=== PATIENT | female | born 1995 | race Hispanic/Latino ===

== ENCOUNTER 2018-03-02 07:48 | Emergency (ER) | payer SELFPAY ==
[2018-03-02] MEDS ORDERED: IBUPROFEN 200 MG TAB PO ONE (08:23)
[2018-03-02] MEDS ORDERED: IBUPROFEN 400 MG TAB ONE (08:23)
--- NOTE | 2018-03-02 09:00 | ER ---
Nurse's Notes [facility] Name: Sofy Vela Age: 22 yrs Sex: Female : 1995 Arrival Date: 03/02/2018 Time: 07:56 Bed 17 Private MD: None, None Diagnosis: Pain in left wrist Presentation: 03/02 08:08 Presenting complaint: Patient states: 40 lb box fell onto L hand 2 days ago. Was seen ss at occupational health facility and had XRAYs obtained the same day, and was told there was not a fracture, take Tylenol for pain and come back Saturday for follow up. Pt reports that pain is much worse yesterday and today and was told to come to ER for further evaluation. Transition of care: patient was not received from another setting of care. Onset of symptoms was February 28, 2018. Risk Assessment: Do you want to hurt yourself or someone else? Patient reports no desire to harm self or others. Initial Sepsis Screen: Does the patient meet any 2 criteria? No. Patient's initial sepsis screen is negative. Does the patient have a suspected source of infection? No. Patient's initial sepsis screen is negative. Care prior to arrival: None. 08:08 Method Of Arrival: Ambulatory ss 08:08 Acuity: EDWINA 4 ss Historical: - Allergies: 08:11 No Known Allergies; ss - Home Meds: 08:11 None [Active]; ss - PMHx: 08:11 None; ss - PSHx: 08:11 None; ss - Immunization history:: Adult Immunizations up to date. - Social history:: Smoking status: Patient/guardian denies using tobacco. - Ebola Screening: : Patient denies exposure to infectious person Patient denies travel to an Ebola-affected area in the 21 days before illness onset. Screenin:20 Abuse screen: Denies threats or abuse. Nutritional screening: No deficits noted. em Tuberculosis screening: No symptoms or risk factors identified. Fall Risk None identified. Assessment: 08:20 General: Appears in no apparent distress. uncomfortable, Behavior is calm, cooperative. em Pain: Complains of pain in left hand Pain currently is 8 out of 10 on a pain scale. Pain began 2-3 days ago. Neuro: Level of Consciousness is awake, alert, obeys commands, Oriented to person, place, time, situation. Cardiovascular: Patient's skin is warm and dry. Respiratory: Airway is patent Respiratory effort is even, unlabored, Respiratory pattern is regular, symmetrical. Derm: Skin is intact, Skin is pink, warm \T\ dry. Musculoskeletal: Capillary refill < 3 seconds, Range of motion: limited in left wrist Swelling present in dorsum of left hand and palm of left hand. Injury Description: Crush injury is box of syrup for fountain drinks. 08:30 General: The previous assessment is accurate, call light remains within reach. . ss Vital Signs: 08:11 BP 103 / 67; Pulse 86; Resp 15; Temp 98.8(TE); Pulse Ox 100% on R/A; Weight 49.9 kg; ss Height 5 ft. 1 in. (154.94 cm); Pain 8/10; 08:11 Body Mass Index 20.78 (49.90 kg, 154.94 cm) ED Course: 07:56 Patient arrived in ED. sb2 07:57 None, None is Private Physician. sb2 07:57 Melissa Drake FNP-C is [facility]. kb 07:57 Frank Ritter MD is Attending Physician. kb 08:06 Kelvin Cheek LVN is Primary Nurse. em 08:11 Triage completed. ss 08:11 Arm band placed on right wrist. ss 08:20 Patient has correct armband on for positive identification. Placed in gown. Bed in low em position. Call light in reach. 08:26 Wrist Left (3 View) XRAY In Process Unspecified. EDMS 09:17 No provider procedures requiring assistance completed. Patient did not have IV access em during this emergency room visit. 09:17 Sling applied to left arm. em Administered Medications: 08:17 Drug: Ibuprofen 600 mg Route: PO; em 09:16 Follow up: Response: No adverse reaction; Pain is decreased em Outcome: 08:59 Discharge ordered by . kb 09:17 Discharged to home ambulatory. em 09:17 Condition: good 09:17 Discharge instructions given to patient, Instructed on discharge instructions, follow up and referral plans. Demonstrated understanding of instructions, follow-up care. 09:17 Patient left the ED. em Signatures: Dispatcher [employer] EDMS Melissa Drake FNP-C FNP-Kelvin Rodríguez LVN LVN Ya Medina, RN RN ss Eliecer, Rossi sb2
--- NOTE | 2018-03-02 09:00 | EDPHYS ---
Physician Documentation [facility] Name: Sofy Vela Age: 22 yrs Sex: Female : 1995 Arrival Date: 03/02/2018 Time: 07:56 Bed 17 Private MD: None, None ED Physician Frank Ritter HPI: 03/02 08:56 This 22 yrs old Female presents to ER via Ambulatory with complaints of Hand kb Injury. 08:54 The patient has been recently seen by a physician: at a clinic. kb 08:56 The patient or guardian reports injury, pain, swelling. The complaints affect the kb lateral aspect of left hand and left wrist. Context: The problem was sustained at work, resulted from a direct blow, heavy box fell onto it. Onset: The symptoms/episode began/occurred 2 day(s) ago. Modifying factors: The symptoms are alleviated by splinting, compression, the symptoms are aggravated by movement. Associated signs and symptoms: The patient has no apparent associated signs or symptoms, Pertinent negatives: cyanosis distally, decreased sensation distally, fever, nausea, numbness distally, tingling distally, vomiting. Severity of symptoms: At their worst the symptoms were moderate, in the emergency department the symptoms are unchanged. The patient has not experienced similar symptoms in the past. Pt states a heavy box fell onto left hand and wrist 2 days ago. Went to [facility] afterwards and had an x-ray done which was negative. Brace applied and told to follow up next week. States pain is worse today with movement so her boss told her to come get it re-evaluated. \E\. Historical: - Allergies: 08:11 No Known Allergies; ss - Home Meds: 08:11 None [Active]; ss - PMHx: 08:11 None; ss - PSHx: 08:11 None; ss - Immunization history:: Adult Immunizations up to date. - Social history:: Smoking status: Patient/guardian denies using tobacco. - Ebola Screening: : Patient denies exposure to infectious person Patient denies travel to an Ebola-affected area in the 21 days before illness onset. ROS: 08:54 Constitutional: Negative for fever, chills, and weight loss, Cardiovascular: Negative kb for chest pain, palpitations, and edema, Respiratory: Negative for shortness of breath, cough, wheezing, and pleuritic chest pain, Abdomen/GI: Negative for abdominal pain, nausea, vomiting, diarrhea, and constipation, Back: Negative for injury and pain, Skin: Negative for injury, rash, and discoloration, Neuro: Negative for headache, weakness, numbness, tingling, and seizure. 08:54 MS/extremity: Positive for injury or acute deformity, pain, swelling, tenderness, of the lateral aspect of left hand and left wrist. Exam: 08:54 Constitutional: This is a well developed, well nourished patient who is awake, alert, kb and in no acute distress. Head/Face: Normocephalic, atraumatic. Chest/axilla: Normal chest wall appearance and motion. Nontender with no deformity. No lesions are appreciated. Cardiovascular: Regular rate and rhythm with a normal S1 and S2. No gallops, murmurs, or rubs. Normal PMI, no JVD. No pulse deficits. Respiratory: Lungs have equal breath sounds bilaterally, clear to auscultation and percussion. No rales, rhonchi or wheezes noted. No increased work of breathing, no retractions or nasal flaring. Abdomen/GI: Soft, non-tender, with normal bowel sounds. No distension or tympany. No guarding or rebound. No evidence of tenderness throughout. Skin: Warm, dry with normal turgor. Normal color with no rashes, no lesions, and no evidence of cellulitis. Neuro: Awake and alert, GCS 15, oriented to person, place, time, and situation. Cranial nerves II-XII grossly intact. Motor strength 5/5 in all extremities. Sensory grossly intact. Cerebellar exam normal. Normal gait. 08:54 Musculoskeletal/extremity: Extremities: grossly normal except: noted in the lateral aspect of left hand and left wrist: pain, swelling, tenderness, ROM: limited active range of motion due to pain, in the left wrist, Circulation is intact in all extremities. Sensation intact. Vital Signs: 08:11 BP 103 / 67; Pulse 86; Resp 15; Temp 98.8(TE); Pulse Ox 100% on R/A; Weight 49.9 kg; ss Height 5 ft. 1 in. (154.94 cm); Pain 8/10; 08:11 Body Mass Index 20.78 (49.90 kg, 154.94 cm) ss MDM: 08:03 Patient medically screened. kb 08:53 Data reviewed: vital signs, nurses notes. Data interpreted: Pulse oximetry: on room air kb is 100 %. Interpretation: normal. Counseling: I had a detailed discussion with the patient and/or guardian regarding: the historical points, exam findings, and any diagnostic results supporting the discharge/admit diagnosis, radiology results, the need for outpatient follow up, a orthopedic surgeon, to return to the emergency department if symptoms worsen or persist or if there are any questions or concerns that arise at home. 08:58 ED course: Brace reapplied. Pt reports relief of pain with brace. kb 03/02 08:06 Order name: Wrist Left (3 View) XRAY kb 03/02 08:53 Order name: Sling; Complete Time: 08:59 kb Administered Medications: 08:17 Drug: Ibuprofen 600 mg Route: PO; em 09:16 Follow up: Response: No adverse reaction; Pain is decreased em Disposition: 03/02/18 08:59 Discharged to Home. Impression: Pain in left wrist. - Condition is Stable. - Discharge Instructions: Cryotherapy, [id number], Wrist Pain, [id number]. - Medication Reconciliation Form, Thank You Letter, Antibiotic Education, Prescription Opioid Use, Work release form form. - Follow up: Emergency Department; When: As needed; Reason: Worsening of condition. Follow up: Private Physician; When: 2 - 3 days; Reason: Recheck today's complaints, Continuance of care, Re-evaluation by your physician. Addendum: 03/04/2018 10:20 Co-signature as Attending Physician, Frank Ritter MD. g s Signatures: Dispatcher [employer] Melissa Abad, AUTO BODY BUILDER APPRENTICE-C AUTO BODY BUILDER APPRENTICE-Ckb Kelvin Cheek, DUDE RANCH MANAGER DUDE RANCH MANAGER em Ya Mckeon, Frank Huang RN, MD MD gs Corrections: (The following items were deleted from the chart) 03/02 09:17 08:59 03/02/2018 08:59 Discharged to Home. Impression: Pain in left wrist. Condition is em Stable. Forms are Medication Reconciliation Form, Thank You Letter, Antibiotic Education, Prescription Opioid Use. Follow up: Emergency Department; When: As needed; Reason: Worsening of condition. Follow up: Private Physician; When: 2 - 3 days; Reason: Recheck today's complaints, Continuance of care, Re-evaluation by your physician. kb
--- NOTE | 2018-03-02 10:55 | RAD REPORT ---
EXAM DESCRIPTION: RAD - Wrist Left 3 View - 03/02/2018 8:26 am CLINICAL HISTORY: PAIN Pain COMPARISON: No comparisons FINDINGS: No fracture or dislocation of the left wrist is seen.
== END 2018-03-02 09:17 | disposition home or self-care (01) ==
LOC: ER 07:48
DX: M25.532 Pain in left wrist (principal)
CPT/HCPCS: 99283

== ENCOUNTER 2018-03-27 16:20 | Emergency (ER) | payer SELFPAY ==
[2018-03-27 17:17] LABS: Urine Blood NEGATIVE (NEG); Urine Glucose NEGATIVE (NEG); Urine Protein 1+ (NEG); Urine Specific Gravity 1.025 (1.005-1.030)
[2018-03-27] MEDS ORDERED: FENTANYL CITR 100 MCG/2 ML ONE ×2 (17:26→18:18)
[2018-03-27] MEDS ORDERED: NA CHLORIDE 0.9% 1,000 ML ONE (17:26)
[2018-03-27] MEDS ORDERED: ONDANSETRON 4 MG/2 ML VIAL ONE (17:26)
[2018-03-27 17:38] LABS: Protime INR 1.26
[2018-03-27 17:39] LABS: Absolute Lymphocytes (CBC) 1.7 K/uL (0.7-4.9); Absolute Monocytes 0.7 K/uL (0.1-1.3); Absolute Neutrophil 5.3 K/uL (1.8-8.0); Basophils % 0.1 % (0-1.3); Eosinophils % 0.7 % (0-4.4); Hematocrit 38.8 % (36.0-45.0); MPV 9.9 fL (7.6-11.3); Monocytes % 8.8 % (3.3-12.3); RBC Red Blood Cell Count 4.24 M/uL (3.86-4.86)
[2018-03-27 17:51] LABS: BUN Blood Urea Nitrogen 7 mg/dL (7-18); Bicarbonate 27 mmol/L (21-32); Glucose Level 66 mg/dL (74-106); Potassium 3.4 mmol/L (3.5-5.1); Sodium Level 142 mmol/L (136-145)
--- NOTE | 2018-03-27 18:05 | RAD REPORT ---
EXAM DESCRIPTION: CT - Head C Spine Cap Brandon Correa - 03/27/2018 5:50 pm CLINICAL HISTORY: Trauma, head and neck injury. Chest, abdomen and pelvis pain. fall on stairs COMPARISON: No comparisons TECHNIQUE: CT head without contrast. CT cervical spine without contrast with coronal and sagittal reformatted images. CT chest, abdomen and pelvis with IV contrast (approximately 100 mL nonionic IV contrast) with kearney l and sagittal reformatted images of the spine. All CT scans are performed using dose optimization technique as appropriate and may include automated exposure control or mA/KV adjustment according to patient size. FINDINGS: CT HEAD WITHOUT CONTRAST: No intracranial hemorrhage, hydrocephalus or extra-axial fluid collection. No areas of brain edema o r midline shift. The paranasal sinuses and mastoids are clear. The calvarium is intact. CT CERVICAL SPINE WITHOUT CONTRAST: No fracture or subluxation. The prevertebral soft tissues are normal in thickness. CT CHEST, ABDOMEN, PELVIS WITH CONTRAST: The lungs are clear.No pneumothorax or pericardial/pleural fluid. No evidence of intra-abdominal visceral injury, free fluid or free air. No concerning pelvic findings. No fractures. IMPRESSION: Negative for acute traumatic findings.
--- NOTE | 2018-03-27 18:24 | EDPHYS ---
Physician Documentation [facility] Name: Sofy Vela Age: 22 yrs Sex: Female : 1995 Arrival Date: 03/27/2018 Time: 16:22 Bed 19 Private MD: None, None ED Physician Jluis Kaiser HPI: 03/27 17:02 This 22 yrs old Female presents to ER via Ambulatory with complaints of Fall cp Injury, Head Injury With LOC-Adult. 17:02 Details of fall: The patient fell from an upright position, while walking, and struck a cp concrete surface, stairs. 17:02 Onset: The symptoms/episode began/occurred just prior to arrival. Associated injuries: cp The patient sustained injury to the head, contusion, injury to the low back, contusion, pain with movement, swelling, tenderness, injury to the abdomen, specifically the anterior aspect of right lateral abdomen and anterior aspect of left lateral abdomen. 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 - Social history:: Smoking status: Patient/guardian denies using tobacco, Patient/guardian denies using alcohol. - Immunization history: Last tetanus immunization: - up to date. - Ebola Screening: : Patient negative for fever greater than or equal to 101.5 degrees Fahrenheit, and additional compatible Ebola Virus Disease symptoms Patient denies exposure to infectious person Patient denies travel to an Ebola-affected area in the 21 days before illness onset. ROS: 17:05 Constitutional: Negative for body aches, chills, fever, poor PO intake. cp 17:05 Eyes: Negative for injury, pain, redness, and discharge. cp 17:05 ENT: Negative for drainage from ear(s), ear pain, sore throat, difficulty swallowing, difficulty handling secretions. 17:05 Cardiovascular: Negative for chest pain, palpitations. 17:05 Respiratory: Negative for cough, shortness of breath, wheezing. 17:05 Abdomen/GI: Positive for abdominal pain, of the anterior aspect of right lateral abdomen and anterior aspect of left lateral abdomen, Negative for vomiting, diarrhea, constipation, anorexia. 17:05 Back: Positive for pain at rest, pain with movement, of the lumbar area. 17:05 MS/extremity: Negative for injury or acute deformity, decreased range of motion, paresthesias. 17:05 Skin: Negative for cellulitis, rash. 17:05 Neuro: Positive for loss of consciousness, Negative for altered mental status, dizziness, headache, seizure activity, syncope, weakness. 17:05 All other systems are negative. Exam: 17:15 Constitutional: The patient appears in no acute distress, alert, awake, non-toxic, well cp developed, well nourished, uncomfortable. 17:15 Head/face: Noted is contusion, that is superficial, of the occipital area of scalp, cp swelling, that is mild, tenderness, that is mild. 17:15 Eyes: Periorbital structures: appear normal, Pupils: equal, round, and reactive to light and accomodation, Extraocular movements: intact throughout, Conjunctiva: normal, no exudate, no injection, Sclera: no appreciated abnormality, Lids and lashes: appear normal, bilaterally. 17:15 ENT: External ear(s): are unremarkable, Ear canal(s): are normal, clear, TM's: are normal, no evidence of bulging, no erythema, Nose: is normal, Mouth: Lips: moist, Oral mucosa: pink and intact, moist, Posterior pharynx: is normal, airway is patent, no erythema, no exudate. 17:15 Neck: C-spine: C-collar placed in ED, vertebral tenderness, that is mild, crepitus, is not appreciated. 17:15 Chest/axilla: Inspection: normal, Palpation: is normal, no crepitus, no tenderness. 17:15 Cardiovascular: Rate: normal, Rhythm: regular. 17:15 Respiratory: the patient does not display signs of respiratory distress, Respirations: normal, no use of accessory muscles, no retractions, no splinting, no tachypnea, Breath sounds: are clear throughout, no decreased breath sounds, no stridor, no wheezing. 17:15 Abdomen/GI: Inspection: abdomen appears normal, Bowel sounds: active, all quadrants, Palpation: soft, in all quadrants, mild abdominal tenderness, in the anterior aspect of right lateral abdomen and anterior aspect of left lateral abdomen, rebound tenderness, is not appreciated, voluntary guarding, is not appreciated, involuntary guarding, is not appreciated. 17:15 Back: pain, that is severe, of the lumbar area, Straight leg raises: pain bilaterally, contusion with small abrasion noted lumbar area. 17:15 Musculoskeletal/extremity: Exam is negative for decreased range of motion, deformity, injury. 17:15 Neuro: Orientation: to person, place \T\ time. Mentation: is normal, Cerebellar function: is grossly normal, Motor: moves all fours, strength is normal, Sensation: is normal. Vital Signs: 16:37 BP 118 / 76; Pulse 92; Resp 18; Temp 98.0(TE); Pulse Ox 100% on R/A; Weight 52.16 kg; hj Height 5 ft. 1 in. (154.94 cm); Pain 10/10; 17:30 BP 111 / 65; Pulse 75; Resp 16; Temp 98.2(O); Pulse Ox 100% on R/A; mh5 16:37 Body Mass Index 21.73 (52.16 kg, 154.94 cm) Ry Coma Score: 16:40 Eye Response: spontaneous(4). Verbal Response: oriented(5). Motor Response: obeys bp commands(6). Total: 15. Trauma Score (Adult): 16:40 Eye Response: spontaneous(1); Verbal Response: oriented(1); Motor Response: obeys bp commands(2); Systolic BP: > 89 mm Hg(4); Respiratory Rate: 10 to 29 per min(4); Ry Score: 15; Trauma Score: 12 MDM: 16:49 Patient medically screened. cp 18:00 Differential diagnosis: closed head injury, contusion, fracture, multiple trauma. cp 18:21 Data reviewed: vital signs, nurses notes, lab test result(s), radiologic studies, CT cp scan, and as a result, I will discharge patient. Response to treatment: the patient's symptoms have markedly improved after treatment, and as a result, I will discharge patient. 03/27 17:00 Order name: Basic Metabolic Panel; Complete Time: 18:06 cp 03/27 18:06 Interpretation: Normal except: K 3.4; GLUC 66. cp 03/27 17:00 Order name: CBC with Diff; Complete Time: 17:48 cp 03/27 17:49 Interpretation: Reviewed. 03/27 17:00 Order name: Creatinine for Radiology; Complete Time: 18:06 cp 03/27 17:00 Order name: PT-INR; Complete Time: 17:48 cp 03/27 17:12 Order name: Urine Dipstick--Ancillary (enter results); Complete Time: 17:48 eb 02 17:49 Interpretation: Normal except: UPROT 1+; UESTR TRACE. cp 03/27 17:00 Order name: C-Collar; Complete Time: 17:10 cp 03/27 17:00 Order name: CT Traumagram (Head C Spine CAP W Con); Complete Time: 18:10 cp 03/27 18:10 Interpretation: Report reviewed. 03/27 17:00 Order name: Labs collected and sent; Complete Time: 17:28 cp 03/27 17:12 Order name: Urine --Ancillary (enter results); Complete Time: 17:48 eb 03/27 17:00 Order name: Urine Dipstick-Ancillary (obtain specimen); Complete Time: 17:12 cp 03/27 17:00 Order name: Urine Test (obtain specimen); Complete Time: 17:12 cp Administered Medications: 17:10 Drug: fentaNYL (PF) 25 mcg Route: IVP; Site: right antecubital; bp 18:28 Follow up: Response: Pain is decreased bp 17:28 Drug: NS 0.9% 1000 ml Route: IV; Rate: 1 bolus; Site: right antecubital; bp 18:30 Follow up: IV Status: Completed infusion; IV Intake: 1000ml bp 17:29 Drug: Zofran 4 mg Route: IVP; Site: right antecubital; bp 18:28 Follow up: Response: Nausea is decreased bp 18:00 Drug: fentaNYL (PF) 25 mcg Route: IVP; Site: right antecubital; bp 18:28 Follow up: Response: Pain is decreased bp Disposition: 19:30 Chart complete. 03/28 12:43 Co-signature as Attending Physician, Jluis Kaiser MD I agree with the assessment and wa plan of care. Disposition: 03/27/18 18:23 Discharged to Home. Impression: Fall (on) (from) other stairs and steps, Contusion of lower back and pelvis, Contusion of unspecified part of head. - Condition is Stable. - Discharge Instructions: Contusion, Concussion, Adult, Head Injury, Adult, RICE for Routine Care of Injuries, Heat Therapy. - Prescriptions for Ibuprofen 600 mg Oral Tablet - take 1 tablet by ORAL route every 6 hours As needed take with food; 30 tablet. Tylenol- Codeine #3 300-30 mg Oral Tablet - take 2 tablets by ORAL route every 6 hours As needed no driving while taking medication; 20 tablet. Cyclobenzaprine 10 mg Oral Tablet - take 1 tablet by ORAL route every 8 hours As needed no driving while taking medication; 20 tablet. - Medication Reconciliation Form, Thank You Letter, Antibiotic Education, Prescription Opioid Use form. - Follow up: Private Physician; When: 1 - 2 days; Reason: Recheck today's complaints. - Problem is new. - Symptoms have improved. Signatures: Dispatcher [employer] [facility] Sameer Aviles RN RN hj Wallace Piedra PA PA cp Appiah, William, MD MD wa Peltier, Brian, RN RN bp Corrections: (The following items were deleted from the chart) 03/27 18:27 18:23 03/27/2018 18:23 Discharged to Home. Impression: Fall (on) (from) other stairs cp and steps; Contusion of lower back and pelvis; Contusion of unspecified part of head. Condition is Stable. Forms are Medication Reconciliation Form, Thank You Letter, Antibiotic Education, Prescription Opioid Use. Follow up: Private Physician; When: 1 - 2 days; Reason: Recheck today's complaints. Problem is new. Symptoms have improved. cp 18:29 17:01 TYPE AND SCREEN+[id number].LAB.BRZ ordered. [facility] EDNJ 19:11 18:27 03/27/2018 18:23 Discharged to Home. Impression: Fall (on) (from) other stairs bp and steps; Contusion of lower back and pelvis; Contusion of unspecified part of head. Condition is Stable. Discharge Instructions: Contusion, Concussion, Adult, Head Injury, Adult, RICE for Routine Care of Injuries, Heat Therapy. Prescriptions for Ibuprofen 600 mg Oral Tablet - take 1 tablet by ORAL route every 6 hours As needed take with food; 30 tablet, Tylenol-Codeine #3 300-30 mg Oral Tablet - take 2 tablets by ORAL route every 6 hours As needed no driving while taking medication; 20 tablet, Cyclobenzaprine 10 mg Oral Tablet - take 1 tablet by ORAL route every 8 hours As needed no driving while taking medication; 20 tablet. and Forms are Medication Reconciliation Form, Thank You Letter, Antibiotic Education, Prescription Opioid Use. Follow up: Private Physician; When: 1 - 2 days; Reason: Recheck today's complaints. Problem is new. Symptoms have improved. cp
--- NOTE | 2018-03-27 18:24 | ER ---
Nurse's Notes [facility] Name: Sofy Vlea Age: 22 yrs Sex: Female : 1995 Arrival Date: 03/27/2018 Time: 16:22 Bed 19 Private MD: None, None Diagnosis: Fall (on) (from) other stairs and steps;Contusion of lower back and pelvis;Contusion of unspecified part of head Presentation: 03/27 16:34 Presenting complaint: Patient states: i fell from 3 steps from my apartment and hurt my hj head and my lower back; eugene like i passed like 3 seconds; headache pain lever is 7/10; lower back pain lever is 10/10;. Transition of care: patient was not received from another setting of care. Onset of symptoms was March 27, 2018. Risk Assessment: Do you want to hurt yourself or someone else? Patient reports no desire to harm self or others. Initial Sepsis Screen: Does the patient meet any 2 criteria? No. Patient's initial sepsis screen is negative. Does the patient have a suspected source of infection? No. Patient's initial sepsis screen is negative. Care prior to arrival: None. 16:34 Method Of Arrival: Ambulatory 16:34 Acuity: EDWINA 4 16:40 Mechanism of Injury: Fall. Trauma event details: Injury occurred in the [facility], Injury occurred: in a public building. Injury occurred: March 27, 2018. Triage Assessment: 16:37 General: Appears in no apparent distress. uncomfortable, Behavior is calm, cooperative, hj appropriate for age. Pain: Complains of pain in head. 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 - Social history:: Smoking status: Patient/guardian denies using tobacco, Patient/guardian denies using alcohol. - Immunization history: Last tetanus immunization: - up to date. - Ebola Screening: : Patient negative for fever greater than or equal to 101.5 degrees Fahrenheit, and additional compatible Ebola Virus Disease symptoms Patient denies exposure to infectious person Patient denies travel to an Ebola-affected area in the 21 days before illness onset. Screenin:37 Abuse screen: Denies threats or abuse. Denies injuries from another. Nutritional hj screening: No deficits noted. Tuberculosis screening: No symptoms or risk factors identified. 19:10 Fall Risk Fall in past 12 months (25 points). No secondary diagnosis (0 pts). No IV (0 bp pts). Ambulatory Aid- None/Bed Rest/Nurse Assist (0 pts). Gait- Normal/Bed Rest/Wheelchair (0 pts) Mental Status- Oriented to own ability (0 pts). Total Preston Fall Scale indicates Low Risk Score (25-44 pts). Fall prevention measures have been instituted. Side Rails Up X 2 Placed close to Nursing Station Frequent Obs/Assesments occuring Family Present and informed to notify staff if they need to leave bedside As available Patient and Family Educated on Fall Prevention Program and strategies. Primary Survey: 16:40 NO uncontrolled hemorrhage observed. A: The patient is alert. Airway: patent. bp Breathing/Chest: Respiratory pattern: regular, Respiratory effort: spontaneous, unlabored. Circulation: Skin color: pink, Skin temperature: warm, dry. Disability Alert. Exposure/Environment: All clothing and personal items were removed. Forensic evidence collection is not deemed to be indicated at this time. Items placed in patient belonging bag. There is no evidence of uncontrolled external bleeding. Obvious injury(ies) are noted at this time: LUMBAR AREA HEMATOMA A warming method has been applied: A warm blanket has been provided to the patient. 19:09 Reassessment Airway Airway Patent Breathing/Chest Respiratory pattern Regular bp Respiratory effort Spontaneous Unlabored Breath sounds Clear Circulation Color [place] Temperature Warm Dry Disability Alert. Secondary Survey: 16:40 HEENT: No deficits noted. Gastrointestinal: No deficits noted. : No signs and/or bp symptoms were reported regarding the genitourinary system. Musculoskeletal: Circulation, motion, and sensation intact. Range of motion: intact in all extremities. Injury Description: Bruise sustained to lumbar area. Assessment: 16:40 General: Appears in no apparent distress. uncomfortable, slender, Behavior is bp cooperative, appropriate for age, anxious, crying. Pain: Complains of pain in thoracic area and lumbar area. Neuro: Level of Consciousness is awake, alert, obeys commands, Oriented to person, place, time, situation, Appropriate for age. EENT: No deficits noted. Cardiovascular: No deficits noted. Respiratory: Airway is patent Respiratory effort is even, unlabored, Respiratory pattern is regular, symmetrical. GI: No signs and/or symptoms were reported involving the gastrointestinal system. : No signs and/or symptoms were reported regarding the genitourinary system. Derm: No deficits noted. Musculoskeletal: Circulation, motion, and sensation intact. Range of motion: intact in all extremities. 19:08 Reassessment: PT D/C HOME AMBULATORY WITH FAMILY, DX WITH FALL AND CONTUSION. bp Vital Signs: 16:37 BP 118 / 76; Pulse 92; Resp 18; Temp 98.0(TE); Pulse Ox 100% on R/A; Weight 52.16 kg; hj Height 5 ft. 1 in. (154.94 cm); Pain 10/10; 17:30 BP 111 / 65; Pulse 75; Resp 16; Temp 98.2(O); Pulse Ox 100% on R/A; mh5 16:37 Body Mass Index 21.73 (52.16 kg, 154.94 cm) hj [place] Coma Score: 16:40 Eye Response: spontaneous(4). Verbal Response: oriented(5). Motor Response: obeys bp commands(6). Total: 15. Trauma Score (Adult): 16:40 Eye Response: spontaneous(1); Verbal Response: oriented(1); Motor Response: obeys bp commands(2); Systolic BP: > 89 mm Hg(4); Respiratory Rate: 10 to 29 per min(4); [place] Score: 15; Trauma Score: 12 ED Course: 16:22 Patient arrived in ED. mr 16:23 None, None is Private Physician. mr 16:37 Triage completed. hj 16:40 Arm band placed on right wrist. hj 16:40 Patient has correct armband on for positive identification. Bed in low position. Call bp light in reach. Side rails up X2. Adult w/ patient. 16:40 Patient maintains SpO2 saturation greater than 95% on room air. Thermoregulation: warm bp blanket given to patient. 16:49 Wallace Piedra PA [facility]. cp 16:49 Jluis Kaiser MD is Attending Physician. cp 16:54 Maynor Campos, KD is Primary Nurse. bp 17:27 Inserted saline lock: 20 gauge in right antecubital area, using aseptic technique. bp Blood collected. 17:28 CT Traumagram (Head C Spine CAP W Con) Sent. bp 17:28 Initial lab(s) drawn, by co, sent to lab. Urine collected: clean catch specimen, mh5 cloudy. Inserted saline lock: 20 gauge antecubital area, using aseptic technique. 17:29 PT-INR Sent. mh5 17:29 Basic Metabolic Panel Sent. mh5 17:29 CBC with Diff Sent. mh5 17:29 Creatinine for Radiology Sent. mh5 17:30 Warm blanket given. Pulse ox on. NIBP on. mh5 17:[address] via stretcher. vm2 17:51 CT Traumagram (Head C Spine CAP W Con) In Process Unspecified. EDMS 19:08 No provider procedures requiring assistance completed. IV discontinued, intact, bp bleeding controlled, No redness/swelling at site. Pressure dressing applied. Administered Medications: 17:10 Drug: fentaNYL (PF) 25 mcg Route: IVP; Site: right antecubital; bp 18:28 Follow up: Response: Pain is decreased bp 17:28 Drug: NS 0.9% 1000 ml Route: IV; Rate: 1 bolus; Site: right antecubital; bp 18:30 Follow up: IV Status: Completed infusion; IV Intake: 1000ml bp 17:29 Drug: Zofran 4 mg Route: IVP; Site: right antecubital; bp 18:28 Follow up: Response: Nausea is decreased bp 18:00 Drug: fentaNYL (PF) 25 mcg Route: IVP; Site: right antecubital; bp 18:28 Follow up: Response: Pain is decreased bp Intake: 16:40 PO: 0ml; Total: 0ml. bp 18:30 IV: 1000ml; Total: 1000ml. bp Output: 16:40 Urine: 0ml; Total: 0ml. bp Outcome: 18:23 Discharge ordered by . cp 19:09 Discharged to home ambulatory, with family. bp 19:09 Condition: stable 19:09 Discharge instructions given to patient, family, Instructed on discharge instructions, follow up and referral plans. medication usage, Demonstrated understanding of instructions, follow-up care, medications, Prescriptions given X 3. 19:11 Patient's length of stay was not longer than 2 hours. bp 19:11 Patient left the ED. bp Signatures: Dispatcher [employer] ED Jordyn JoyceSameer, RN RN Wallace Fermin PA PA cp Martinez, [facility] Vanessa Jones [facility] Maynor Campos, KD RN bp Corrections: (The following items were deleted from the chart) 16:40 16:34 Presenting complaint: Patient states: i fell from 3 steps from my apartment and hj hurt my head and my lower; eugene like i passed like 3 seconds; headache pain lever is 7/10; lower back pain lever is 10/10; hj 18:29 17:29 TYPE AND SCREEN+BB.[email or web address].PEYMAN drawn and sent. [address]
== END 2018-03-27 19:11 | disposition home or self-care (01) ==
LOC: ER 16:20
DX: S30.0XXA Contusion of lower back and pelvis, initial encounter (principal); S00.93XA Contusion of unspecified part of head, initial encounter; W10.9XXA Fall (on) (from) unspecified stairs and steps, initial encounter; Y93.9 Activity, unspecified; Y92.9 Unspecified place or not applicable
CPT/HCPCS: 36415; 70450; 71260; 72125; 74177; 80048; 81003; 81025; 85025; 85610; 96361; 96374; 96375; 99285; J2405; J3010; J7030; Q9967

== ENCOUNTER 2022-03-19 20:08 | Emergency (ER) | payer OTHER, SELFPAY ==
--- OUTSIDE RECORDS SUMMARY | 2022-03-19 20:11 | XMS REPORT | Continuity of Care Document ---
:1995 Author Organization [facility] t Address [address] [place] [address] Dr. Clark [address] [place] [id number] Care Team Providers Name Role Phone Unavailable Unavailable Unavailable Problems This patient has no known problems. Allergies, Adverse Reactions, Alerts This patient has no known allergies or adverse reactions. Medications This patient has no known medications. Procedures This patient has no known procedures. Encounters Start End Encounter Admission Attending Care Care Encounter Source Date/Time Date/Time Type Type Clinicians Facility Department ID 2019-09-24 2019-09-24 Outpatient [facility] PDPFEIZ [facility]N [facility] 00:00:00 00:00:00 [id number] Results This patient has no known results.
[2022-03-19] MEDS ORDERED: ONDANSETRON 4 MG (ODT) TAB ONE (20:28)
--- NOTE | 2022-03-19 21:54 | RAD REPORT ---
EXAM DESCRIPTION: RAD - Chest Pa And Lat (2 Views) - 03/19/2022 9:20 pm CLINICAL HISTORY: COUGH COMPARISON: No comparisons FINDINGS: Lines: None. Lungs: No evidence of edema or pneumonia. Pleural: No significant pleural effusions or pneumothorax. Cardiac: The heart size is within normal limits. Mediastinum: Within normal limits. Bones: No acute fractures. Other: None IMPRESSION: No acute cardiopulmonary disease.
[2022-03-19] MEDS ORDERED: FAMOTIDINE 20 MG/2 ML VIAL IV ONE (22:17)
[2022-03-19] MEDS ORDERED: NA CHLORIDE 0.9% 1,000 ML ONE (22:17)
[2022-03-19 22:29] LABS: Urine Blood Negative (Negative); Urine Glucose Negative (Negative); Urine Protein 1+ (Negative); Urine Specific Gravity >=1.030 (1.005-1.030)
[2022-03-19 22:49] LABS: Absolute Lymphocytes (CBC) 0.7 K/uL (0.7-4.9); Hematocrit 40.1 % (36.0-45.0); Lymphocytes % 6.5 % (15.3-44.8); MCV 88.7 fL (80-100); MPV 10.3 fL (7.6-11.3); RBC Red Blood Cell Count 4.52 M/uL (3.86-4.86)
[2022-03-19 22:52] LABS: Urine Bacteria 20-50 /HPF (<20); Urine Mucus 4+ /HPF (None Seen)
[2022-03-19 22:59] LABS: Bilirubin Total 0.6 mg/dL (0.2-1.0); Potassium 3.3 mmol/L (3.5-5.1); Protein, Total 8.1 g/dL (6.4-8.2)
--- NOTE | 2022-03-19 23:37 | ER ---
Nurse's Notes [facility] Name: Sofy Vela Age: 26 yrs Sex: Female : 1995 Arrival Date: 03/19/2022 Time: 20:14 Bed 11 Private MD: Diagnosis: Abdominal pain, Generalized;Nausea with vomiting, unspecified;Hypokalemia Presentation: 03/19 20:17 Chief complaint: Patient states: i started throwing up today and cant keep anything jh5 down, I have had congestion a couple days but I have been throwing up all day and have a 102 fever but I cant take medicine cause I cant keep water or anything down. And diarrhea today, and my ears sound funny now from throwing up and I have belly pain. Coronavirus screen: Vaccine status: Patient reports being unvaccinated. Client denies travel out of the [place] in the last 14 days. Ebola Screen: Patient negative for fever greater than or equal to 101.5 degrees Fahrenheit, and additional compatible Ebola Virus Disease symptoms Patient denies exposure to infectious person. Patient denies travel to an Ebola-affected area in the 21 days before illness onset. Initial Sepsis Screen: Does the patient meet any 2 criteria? HR > 90 bpm. Does the patient have a suspected source of infection? No. Patient's initial sepsis screen is negative. Risk Assessment: Do you want to hurt yourself or someone else? Patient reports no desire to harm self or others. Onset of symptoms was March 19, 2022. 20:17 Method Of Arrival: Ambulatory [facility] 20:17 Acuity: EDWINA 3 5 Triage Assessment: 20:21 General: Appears uncomfortable, slender, well groomed, well developed, Behavior is jh5 calm, cooperative, anxious, crying. Pain: Complains of pain in abdomen. GI: Reports lower abdominal pain, diarrhea, nausea, vomiting. 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 - Social history:: Smoking status: Patient denies any tobacco usage or history of. Screenin:36 [facility] ED Fall Risk Assessment (Adult) History of falling in the last 3 months, aa9 including since admission No falls in past 3 months (0 pts) Confusion or Disorientation No (0 pts) Intoxicated or Sedated No (0 pts) Impaired Gait No (0 pts) Mobility Assist Device Used No (0 pt) Altered Elimination No (0 pt) Score/Fall Risk Level 0 - 2 = Low Risk Oriented to surroundings, Maintained a safe environment. Abuse screen: Denies threats or abuse. Denies injuries from another. Nutritional screening: Has had N/V for 3 or more days. Tuberculosis screening: No symptoms or risk factors identified. Assessment: 22:35 General: Appears in no apparent distress. comfortable, slender, Behavior is calm, aa9 cooperative, appropriate for age. Neuro: Level of Consciousness is awake, alert, obeys commands, Oriented to person, place, time, situation. Respiratory: Airway is patent Respiratory effort is even, unlabored. GI: Abdomen is flat, non-distended, Reports diarrhea, intolerance of fluids, intolerance of food, nausea. : No signs and/or symptoms were reported regarding the genitourinary system. Derm: Skin is intact, is healthy with good turgor. 23:46 Reassessment: Patient appears in no apparent distress at this time. No changes from lg3 previously documented assessment. Patient and/or family updated on plan of care and expected duration. Pain level reassessed. Patient is alert, oriented x 3, equal unlabored respirations, skin warm/dry/pink. Patient states feeling better. 23:46 GI: Bowel sounds hyperactive in right upper quadrant, left upper quadrant, right lower lg3 quadrant and left lower quadrant Abd is soft X 4 quads. Vital Signs: 20:17 BP 126 / 81; Pulse 91; Resp 18; Temp 99.9; Pulse Ox 100% ; Weight 68.04 kg; Height 5 5 ft. 1 in. (154.94 cm); Pain 8/10; 20:17 Body Mass Index 28.34 (68.04 kg, 154.94 cm) [facility] ED Course: 20:14 Patient arrived in ED. ag3 20:21 Triage completed. 5 20:21 Arm band placed on right wrist. 5 20:41 Wallace Riddle MD is Attending Physician. costa 21:21 Chest Pa And Lat (2 Views) XRAY In Process Unspecified. EDMS 22:23 COVID-19/FLU A+B Sent. aa9 22:23 CBC with Diff Sent. aa9 22:23 CMP Sent. aa9 22:23 Lipase Sent. aa9 22:23 Urine Microscopic Only Sent. aa9 22:23 Inserted saline lock: 20 gauge in right antecubital area, using aseptic technique. aa9 Blood collected. 22:36 Patient has correct armband on for positive identification. Bed in low position. Call aa9 light in reach. 23:18 CT Abd/Pelvis - IV Contrast Only In Process Unspecified. EDMS 23:46 No provider procedures requiring assistance completed. IV discontinued, intact, lg3 bleeding controlled, No redness/swelling at site. Pressure dressing applied. Administered Medications: 20:25 Drug: Ondansetron 4 mg Route: PO; jh5 22:23 Drug: NS 0.9% 1000 ml Route: IV; Rate: 1 bolus; Site: right antecubital; aa9 22:23 Drug: Pepcid (famotidine) 20 mg Route: IVP; Site: right antecubital; aa9 Medication: 22:36 VIS not applicable for this client. aa9 Outcome: 23:37 Discharge ordered by . costa 23:46 Discharged to home ambulatory. lg3 23:46 Condition: stable 23:46 Discharge instructions given to patient, Instructed on discharge instructions, follow up and referral plans. medication usage, Demonstrated understanding of instructions, follow-up care, medications, Prescriptions given X 4. 23:46 Patient left the ED. lg3 Signatures: Dispatcher [employer] EDMS Wallace Riddle MD MD cha Gomez, Alice ag3 Angeline Castellanos, RN RN lg3 Nae Wilkerson, KD YI 5 Maki Peng, KD RN aa9
--- NOTE | 2022-03-19 23:38 | EDPHYS ---
Physician Documentation [facility] Name: Sofy Vela Age: 26 yrs Sex: Female : 1995 Arrival Date: 03/19/2022 Time: 20:14 Bed 11 Private MD: ED Physician Wallace Riddel HPI: 03/19 23:11 This 26 yrs old Female presents to ER via Ambulatory with complaints of costa Abdominal Pain, Vomiting. 23:11 The patient presents to the emergency department with nausea, vomiting. Onset: The costa symptoms/episode began/occurred just prior to arrival. Possible causes: unknown, bad food exposure, fajita meat. The symptoms are aggravated by pressure, food , The symptoms are alleviated by remaining still. Associated signs and symptoms: Pertinent positives: abdominal pain, nausea, vomiting. Severity of symptoms: At their worst the symptoms were moderate in the emergency department the symptoms have improved moderately. The patient has experienced similar episodes in the past, a few times. 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 - Social history:: Smoking status: Patient denies any tobacco usage or history of. ROS: 23:14 Constitutional: Negative for fever, chills, and weight loss, Eyes: Negative for injury, costa pain, redness, and discharge, ENT: Negative for injury, pain, and discharge, Neck: Negative for injury, pain, and swelling, Cardiovascular: Negative for chest pain, palpitations, and edema, Respiratory: Negative for shortness of breath, cough, wheezing, and pleuritic chest pain, Back: Negative for injury and pain, : Negative for injury, bleeding, discharge, and swelling, MS/Extremity: Negative for injury and deformity, Skin: Negative for injury, rash, and discoloration, Neuro: Negative for headache, weakness, numbness, tingling, and seizure, Psych: Negative for depression, anxiety, suicide ideation, homicidal ideation, and hallucinations, Allergy/Immunology: Negative for hives, rash, and allergies, Endocrine: Negative for neck swelling, polydipsia, polyuria, polyphagia, and marked weight changes, Hematologic/Lymphatic: Negative for swollen nodes, abnormal bleeding, and unusual bruising. 23:14 Abdomen/GI: Positive for abdominal pain, nausea and vomiting, of the right upper quadrant, left upper quadrant, right lower quadrant and left lower quadrant. Exam: 23:14 Constitutional: This is a well developed, well nourished patient who is awake, alert, costa and in no acute distress. Head/Face: Normocephalic, atraumatic. Eyes: Pupils equal round and reactive to light, extra-ocular motions intact. Lids and lashes normal. Conjunctiva and sclera are non-icteric and not injected. Cornea within normal limits. Periorbital areas with no swelling, redness, or edema. ENT: Nares patent. No nasal discharge, no septal abnormalities noted. Tympanic membranes are normal and external auditory canals are clear. Oropharynx with no redness, swelling, or masses, exudates, or evidence of obstruction, uvula midline. Mucous membranes moist. Neck: Trachea midline, no thyromegaly or masses palpated, and no cervical lymphadenopathy. Supple, full range of motion without nuchal rigidity, or vertebral point tenderness. No Meningismus. Chest/axilla: Normal chest wall appearance and motion. Nontender with no deformity. No lesions are appreciated. Cardiovascular: Regular rate and rhythm with a normal S1 and S2. No gallops, murmurs, or rubs. Normal PMI, no JVD. No pulse deficits. Respiratory: Lungs have equal breath sounds bilaterally, clear to auscultation and percussion. No rales, rhonchi or wheezes noted. No increased work of breathing, no retractions or nasal flaring. Back: No spinal tenderness. No costovertebral tenderness. Full range of motion. Skin: Warm, dry with normal turgor. Normal color with no rashes, no lesions, and no evidence of cellulitis. MS/ Extremity: Pulses equal, no cyanosis. Neurovascular intact. Full, normal range of motion. Neuro: Awake and alert, GCS 15, oriented to person, place, time, and situation. Cranial nerves II-XII grossly intact. Motor strength 5/5 in all extremities. Sensory grossly intact. Cerebellar exam normal. Normal gait. Psych: Awake, alert, with orientation to person, place and time. Behavior, mood, and affect are within normal limits. 23:14 Abdomen/GI: Inspection: abdomen appears normal, Bowel sounds: normal, Palpation: mild abdominal tenderness, in all quadrants, Liver: no appreciated palpable abnormalities, Hernia: not appreciated. Vital Signs: 20:17 BP 126 / 81; Pulse 91; Resp 18; Temp 99.9; Pulse Ox 100% ; Weight 68.04 kg; Height 5 [facility] ft. 1 in. (154.94 cm); Pain 8/10; 20:17 Body Mass Index 28.34 (68.04 kg, 154.94 cm) [facility] MDM: 20:41 Patient medically screened. costa 23:15 Differential diagnosis: Nonspecific abd pain, gastritis, cholecystitis, pancreatitis, costa appendicitis, diverticulitis, viral gastroenteritis, gastroenteritis, Cholelithiasis, diverticulitis, gastritis, gastroesophageal reflux disease, Mesenteric ischemia or infarction, non-specific abd pain. Data reviewed: vital signs, nurses notes, lab test result(s), radiologic studies, CT scan, plain films. Consideration of Admission/Observation Patient was admitted/placed on observation. Escalation of care including admission/observation considered. I considered the following discharge prescriptions or medication management in the emergency department Medications were administered in the Emergency Department. See MAR. Test considered but Not performed: Ultrasound gall bladder. 03/19 20:41 Order name: CBC with Diff [facility] 03/19 20:41 Order name: CMP; Complete Time: 23:03 [facility] 03/19 20:41 Order name: Lipase; Complete Time: 23:03 [facility] 03/19 20:41 Order name: Urine Microscopic Only; Complete Time: 23:03 [facility] 03/19 20:41 Order name: COVID-19/FLU A+B [facility] 03/19 22:29 Order name: Urine Dipstick-Ancillary; Complete Time: 22:43 [facility] 03/19 20:41 Order name: CT Abd/Pelvis - IV Contrast Only [facility] 03/19 20:41 Order name: Chest Pa And Lat (2 Views) XRAY; Complete Time: 21:58 [facility] 03/19 22:43 Order name: Urine --Ancillary (enter results) 2 03/19 22:55 Order name: Manual Differential [facility] 03/19 23:28 Order name: CREATININE WHOLE BLOOD [facility] 03/19 20:41 Order name: IV Saline Lock; Complete Time: 22:23 [facility] 03/19 20:41 Order name: Labs collected and sent; Complete Time: 22:23 [facility] 01/30 20:41 Order name: Urine Dipstick-Ancillary (obtain specimen); Complete Time: 22:29 [facility] 03/19 20:41 Order name: Urine Test (obtain specimen); Complete Time: 22:29 [facility] 03/19 23:11 Order name: PO challenge: juice; Complete Time: 23:17 [facility] Administered Medications: 20:25 Drug: Ondansetron 4 mg Route: PO; jh5 22:23 Drug: NS 0.9% 1000 ml Route: IV; Rate: 1 bolus; Site: right antecubital; aa9 22:23 Drug: Pepcid (famotidine) 20 mg Route: IVP; Site: right antecubital; aa9 Disposition Summary: 03/19/22 23:37 Discharge Ordered Location: Home [facility] Problem: new cosat Symptoms: have improved costa Condition: Stable [facility] Diagnosis - Abdominal pain, Generalized costa - Nausea with vomiting, unspecified costa - Hypokalemia costa Followup: [facility] - With: Private Physician - When: 1 - 2 days - Reason: Recheck today's complaints, Continuance of care, Re-evaluation by your physician Discharge Instructions: - Discharge Summary Sheet costa - Abdominal Pain, Adult costa - Potassium Content of Foods costa - Nausea and Vomiting, Adult costa - Abdominal Pain, Adult, [id number] costa - Hypokalemia costa - Nausea, Adult, [id number] [facility] Forms: - Medication Reconciliation Form [facility] - Thank You Letter [facility] - Antibiotic Education [facility] - Prescription Opioid Use [facility] Prescriptions: - Pepcid 20 mg Oral Tablet - take 1 tablet by ORAL route every 12 hours for 10 days; 20 tablet; Refills: 0, [facility] Product Selection Permitted - dicyclomine 20 mg Oral Tablet - take 1 tablet by ORAL route 4 times per day; 28 tablet; Refills: 0, Product [facility] Selection Permitted - ondansetron 4 mg Oral - take 4 milligrams by SUBLINGUAL route every 8 hours; 15 tablet; Refills: 0, [facility] Product Selection Permitted - promethazine 25 mg Oral Tablet - take 1 tablet by ORAL route every 6 hours As needed; 20 tablet; Refills: 0, [facility] Product Selection Permitted Signatures: Dispatcher [employer] Wallace Kay MD MD cha Rees, Jessica RN RN [id number] Maki Peng RN RN [id number]
[2022-03-19 23:43] LABS: SARS-COV-2 RT PCR NEGATIVE (NEGATIVE)
[2022-03-19 23:51] LABS: Blood Morphology Comment NOT SEEN (NOT SEEN); Platelet Estimate ADEQ
[2022-03-20 00:09] VITALS: BP 126/81; TEMP 99.9; O2SAT 100
[2022-03-20 00:14] LABS: Urine Specific Gravity/Preg >1.030 (1.005-1.030)
--- NOTE | 2022-03-20 11:09 | RAD REPORT ---
EXAM DESCRIPTION: CT - Abdomen Pelvis W Contrast - 03/20/2022 6:14 am CLINICAL HISTORY: The patient is 26 years old and is Female; Abdominal pain, acute, nonlocalized TECHNIQUE: Axial computed tomography images of the abdomen and pelvis with intravenous contrast. S agittal and coronal reformatted images were created and reviewed. This CT exam was performed using one or more of the following dose reduction techniques: automated exposure control, adjustment of t he mA and/or kV according to patient size, and/or use of iterative reconstruction technique. DLP: 1067 mGy*cm COMPARISON: CT chest, abdomen and pelvis dated 03/27/2018. FINDINGS: LUNG BASES: Lung bases are clear. HEART: Visualized heart is normal. ABDOMEN: LIVER: Unremarkable. No mass. GALLBLADDER AND BILE DUCTS: Unremarkable. No calcified stones. No ductal dilation. PANCREAS: Unremarkable. No mass. No ductal dilation. SPLEEN: Unremarkable. No splenomegaly. ADRENALS: Unremarkable. No mass. KIDNEYS AND URETERS: Unremarkable. No solid mass. No hydronephrosis. STOMACH AND BOWEL: Unremarkable. No obstruction. No mucosal thickening. PELVIS: APPENDIX: The appendix is seen and is within normal limits. BLADDER: Bladder is decompressed. REPRODUCTIVE: Unremarkable as visualized. ABDOMEN and PELVIS: INTRAPERITONEAL SPACE: Unremarkable. No free air. No significant fluid collection. BONES/JOINTS: No acute fracture. No dislocation. SOFT TISSUES: Fat-containing lumbrical hernia. VASCULATURE: Unremarkable. No abdominal aortic aneurysm. LYMPH NODES: Unremarkable. No enlarged lymph nodes. IMPRESSION: No acute abdominal or pelvic abnormality. 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 The interpreting radiologist is fully responsible for the content of the report.
== END 2022-03-19 23:46 | disposition home or self-care (01) ==
LOC: ER 20:08
DX: R10.84 Generalized abdominal pain (principal); E87.6 Hypokalemia; R11.2 Nausea with vomiting, unspecified; Z20.822 Contact with and (suspected) exposure to COVID-19; Z88.1 Allergy status to other antibiotic agents
CPT/HCPCS: 85025; 36415; 82565; 83690; 80053; 0240U; 74177; 71046; Q9967; Q0162; J7030; 81003; 81015; 81025; 96374; 99284